=== PATIENT | female | born 1965 | race Two or more races ===

== ENCOUNTER → 2019-03-12 | Day surgery (SDC) | payer OTHER ==
--- NOTE | 2019-03-12 23:10 | OP ---
DATE OF OPERATION: 03/12/2019 PREOPERATIVE DIAGNOSIS: Abnormal left mammography. POSTOPERATIVE DIAGNOSIS: Abnormal left mammography. PROCEDURE: Left breast stereotactic needle biopsy with clip. SURGEON: Cindy Siddiqui M.D. ANESTHESIA: Local. COMPLICATIONS: None. This was a sterile procedure. INDICATION FOR PROCEDURE: The patient presented with a screening mammogram that noted a cluster of microcalcifications in the upper left breast. needle biopsy. The procedure was discussed with her including need for clip with biopsy. PROCEDURE IN DETAIL: Patient brought to [facility] in [place], laid prone on the OR table. Using the lateral approach, calcifications in the upper left breast were identified. A sterile prep was obtained. A target was chosen. There was a positive stroke margin. Using Betadine and 1% lidocaine a 9-gauge Suros device was used to several cores from this area. Cores were sent to pathology in formalin. Hemostasis assured with direct pressure. A clip was deployed. The incision was closed with Steri-Strips. She left the breast imaging center in good condition. CINDY SIDDIQUI M.D. [id number]
--- NOTE | 2019-03-13 11:58 | PATH ---
Surgical Pathology Report Patient Name: ALISON RAMSEY [facility]. Rec. #: [id number] /Age/Gender: 1965 (Age: 53) / F Account: [id number] Location: [facility] Taken: 03/12/2019 Received: 03/12/2019 Reported: 03/13/2019 Physicians: Cindy Magana M.D. Specimen(s) Received A: LEFT BREAST SPECIMEN-WITH CALCIFICATIONS B: LEFT BREAST SPECIMEN-WITHOUT CALCIFICATIONS Clinical History Mammographic findings: Microcalcification, suspicious Final Diagnosis A. BREAST, LEFT, WITH CALCIFICATIONS, STEREOTACTIC BIOPSY: BENIGN BREAST TISSUE SHOWING FIBROADENOMA WITH ASSOCIATED CALCIFICATIONS. B. BREAST, LEFT, WITHOUT CALCIFICATIONS, STEREOTACTIC BIOPSY: BENIGN BREAST TISSUE WITH FRAGMENT OF FIBROADENOMA. Electronically Signed Yoselyn Guevara M.D. Gross Description A. Received in formalin labeled "left breast with calcifications," are 2 toscano-yellow, cylindrical portions of fibroadipose tissue measuring 3.2 and 4.4 cm in length and averaging 0.3 cm in diameter. The specimens are submitted in toto in one cassette. B. Received in formalin labeled "left breast without calcifications," are 6 toscano-yellow, cylindrical portions of fibroadipose tissue ranging from 3.0-4.0 cm in length and averaging 0.3 cm in diameter. The specimens are submitted in toto in 2 cassettes. 03/12/201903/12/2019
== END | disposition home or self-care (01) ==
LOC: FMAMMOTONE 11:30
PROVIDERS: ATTEND Surgery
PROC: 0HBU3ZX Excision of Left Breast, Percutaneous Approach, Diagnostic (ICD-10-PCS; principal; 2019-03-12)
DX: D24.2 Benign neoplasm of left breast (principal); N64.9 Disorder of breast, unspecified; R92.8 Other abnormal and inconclusive findings on diagnostic imaging of breast
CPT/HCPCS: 19081; 88305-TC